=== PATIENT | male | born 1945 | race Caucasian/White ===

== ENCOUNTER 2022-02-26 19:57 | Inpatient (IN) | payer MEDICARE ==
[2022-02-26] MEDS ORDERED: Albuterol Sulfate 2.5 mg/3 ml Neb ONE (20:01)
[2022-02-26 20:51] LABS: #Basophils 0.1 10x3/uL (0.0-0.2); #Eosinphils 0.4 10x3/uL (0.0-0.5); #Monocytes 0.3 10x3/uL (0.0-1.1); #Neutrophils 9.6 10x3/uL (1.5-8.4); %Eosinophils 3.3 % (0.0-6.0); %Lymphocytes 6.8 % (18.0-47.0); %Monocytes 2.7 % (0.0-10.0); %Neutrophils 83.2 % (40.0-75.0); Mean Corpuscular HGB CONC 32.2 g/dL (32.0-36.0); Mean Corpuscular Hemoglobin 31.4 pg (27.0-33.0); Mean Corpuscular Volume 97.6 fl (81.2-95.1); Mean Platelet Volume 9.9 fl (7.4-10.4); Platelet Count 154 10x3/uL (150-450); Red Blood Cell (RBC) Count 5.09 10x6/uL (4.32-5.72); White Blood Cell (WBC) Count 11.5 10x3/uL (3.5-10.5)
[2022-02-26 21:00] LABS: SARS-CoV-2 NAA Rapid Test Not Detected (NotDetected)
[2022-02-26 21:05] LABS: ALT (SGPT) 15 U/L (8-55); AST (SGOT) 20 U/L (5-34); Alkaline Phosphatase 78 U/L (40-110); Anion Gap 15 mmol/L (10-20); BUN (Urea Nitrogen) 23 mg/dL (8.4-25.7); Bilirubin, Total 0.8 mg/dL (0.2-1.2); Calc. Creatinine Clearance 0 mL/min (70-130); Calcium 9.1 mg/dL (7.8-10.44); Carbon Dioxide 34 mmol/L (23-31); Chloride 98 mmol/L (98-107); Estimated GFR 92; Globulin 3.2 g/dL (2.4-3.5); Glucose 143 mg/dL (83-110); Potassium 4.4 mmol/L (3.5-5.1); Protein, Total 7.2 g/dL (5.8-8.1); Sodium 143 mmol/L (136-145)
[2022-02-26] MEDS ORDERED: Dexmedetomidine In 0.9 % NaCl 400 MCG in Premix Bag 1 BAG IVPB SCH (22:00)
[2022-02-26] MEDS ORDERED: methylPREDNISolone Sod Succ/PF 125 MG/2 ML VIAL ONE (22:21)
[2022-02-26] MEDS ORDERED: Propofol 1,000 MG/100 ML VIAL IV ONE (22:51)
[2022-02-26] MEDS ORDERED: Acetaminophen 650 MG Suppository PR PRN (23:27)
[2022-02-26] MEDS ORDERED: Rocuronium Bromide 10 MG/ML (10ML VIAL) ONE (23:30)
[2022-02-26] MEDS ORDERED: Ventilator Sedation Protocol 1 EACH FS SCH (23:30)
[2022-02-26] MEDS ORDERED: Succinylcholine 200 MG/10 ml SYRINGE FS ONE (23:30)
[2022-02-26] MEDS ORDERED: Propofol 1,000 MG/100 ML VIAL IV PRN (23:43)
[2022-02-26] MEDS ORDERED: Morphine 2 MG/ML VIAL SLOW IVP PRN (23:45)
[2022-02-26] MEDS ORDERED: Propofol BOLUS 1,000 MG/100 ML VIAL IV PRN (23:45)
[2022-02-26] MEDS ORDERED: Fentanyl BOLUS 250 ML IVPB PRN (23:45)
[2022-02-27 00:18] LABS: Magnesium 1.9 mg/dL (1.6-2.6)
[2022-02-27 01:19] LABS: Base Excess (BEa) 8.3 mEq/L (-2.0 to +3.0); Calcium, Ionized (arterial) 1.12 mmol/L (1.12-1.30); Carboxyhemoglobin (COHb) 0.8 gm% (0.0-3.0); Critical Notified By: CP.JL; Hemoglobin (Hb) 17.8 g/dL (14.0-18.0); O2 Tension (PaO2), arterial 70.9 mmHg (> 70.0); Puncture Site RRA; RapidComm Collect By CP.JL; pH, Arterial 7.58 (7.35-7.45)
[2022-02-27] MEDS ORDERED: Cefepime 2 GM VIAL ONE (01:42)
[2022-02-27] MEDS: Cefepime 2 GM in Sodium Chloride 0.9% 100 ML IVPB SCH ×3 (01:44→23:22)
[2022-02-27] MEDS: Sodium Chloride 0.9% 1,000 ML IV SCH ×2 (01:45→12:43)
[2022-02-27] MEDS: methylPREDNISolone Sod Succ 40 MG VIAL IVP SCH ×5 (01:45→23:23)
[2022-02-27] MEDS: Propofol 1,000 MG/100 ML VIAL IV PRN ×5 (03:09→23:39)
[2022-02-27 04:34] LABS: Actual Bicarbonate (HCO3a) 31.3 mEq/L (22-28); Base Excess (BEa) 6.2 mEq/L (-2.0 to +3.0); CO2 Tension 45.8 mmHg (35.0-45.0); Calcium, Ionized (arterial) 1.16 mmol/L (1.12-1.30); Carboxyhemoglobin (COHb) 0.5 gm% (0.0-3.0); Critical Notified By: CP.JL; Hemoglobin (Hb) 17.4 g/dL (14.0-18.0); Potassium - ABG Lab 3.7 mmol/L (3.70-5.30); Puncture Site RRA; RapidComm Collect By CP.JL; pH, Arterial 7.45 (7.35-7.45)
[2022-02-27 06:42] LABS: #Monocytes 0.1 10x3/uL (0.0-1.1); #Neutrophils 9.7 10x3/uL (1.5-8.4); %Basophils 0.4 % (0.0-2.0); %Eosinophils 0.2 % (0.0-6.0); %Lymphocytes 4.4 % (18.0-47.0); %Monocytes 0.9 % (0.0-10.0); %Neutrophils 91.9 % (40.0-75.0); Hemoglobin 16.7 g/dL (13.5-17.5); Mean Corpuscular HGB CONC 32.6 g/dL (32.0-36.0); Mean Corpuscular Volume 95.4 fl (81.2-95.1); Mean Platelet Volume 10.3 fl (7.4-10.4); Platelet Count 164 10x3/uL (150-450); RBC Distribution Width 14.8 % (11.5-14.5); Red Blood Cell (RBC) Count 5.38 10x6/uL (4.32-5.72); White Blood Cell (WBC) Count 10.5 10x3/uL (3.5-10.5)
[2022-02-27 07:06] LABS: Anion Gap 17 mmol/L (10-20); BUN (Urea Nitrogen) 24 mg/dL (8.4-25.7); Calc. Creatinine Clearance 133 mL/min (70-130); Calcium 8.8 mg/dL (7.8-10.44); Carbon Dioxide 27 mmol/L (23-31); Chloride 102 mmol/L (98-107); Estimated GFR 94; Glucose 157 mg/dL (83-110); Potassium 3.8 mmol/L (3.5-5.1); Sodium 142 mmol/L (136-145)
[2022-02-27] MEDS: FENTANYL 2,000MCG/100-0.9%NACL 100 ML IVPB SCH ×2 (07:18→19:20)
[2022-02-27] MEDS: Budesonide 0.5 MG/2 ML NEB NEB SCH ×2 (07:30→18:57)
[2022-02-27] MEDS: Arformoterol 15 MCG/2 ML NEB NEB SCH ×2 (08:43→18:56)
[2022-02-27] MEDS ORDERED: Iopamidol 370 76% 100 ML VIAL ONE (09:08)
[2022-02-27 12:05] LABS: Actual Bicarbonate (HCO3a) 41.6 mEq/L (22-28); Calcium, Ionized (arterial) 1.22 mmol/L (1.12-1.30); Carboxyhemoglobin (COHb) 1.9 gm% (0.0-3.0); Hemoglobin (Hb) 17.2 g/dL (14.0-18.0); O2 Tension (PaO2), arterial 82.2 mmHg (> 70.0); Potassium - ABG Lab 4.3 mmol/L (3.70-5.30); Puncture Site RRA; RapidComm Collect By CP.JL; pH, Arterial 7.17 (7.35-7.45)
[2022-02-27 12:06] LABS: Actual Bicarbonate (HCO3a) 41.1 mEq/L (22-28); Base Excess (BEa) 6.3 mEq/L (-2.0 to +3.0); CO2 Tension 122.6 mmHg (35.0-45.0); Calcium, Ionized (arterial) 1.25 mmol/L (1.12-1.30); Carboxyhemoglobin (COHb) 1.6 gm% (0.0-3.0); Hemoglobin (Hb) 16.7 g/dL (14.0-18.0); O2 Tension (PaO2), arterial 90.3 mmHg (> 70.0); Potassium - ABG Lab 4.4 mmol/L (3.70-5.30); Puncture Site RRA; RapidComm Collect By CP.JL; pH, Arterial 7.14 (7.35-7.45)
[2022-02-27] MEDS: HumaLOG 300 UNITS/3 ML VIAL SC PRN ×3 (16:33→23:59)
[2022-02-27 16:37] LABS: Actual Bicarbonate (HCO3a) 28.5 mEq/L (22-28); Base Excess (BEa) 2.9 mEq/L (-2.0 to +3.0); CO2 Tension 46.9 mmHg (35.0-45.0); Calcium, Ionized (arterial) 1.12 mmol/L (1.12-1.30); Carboxyhemoglobin (COHb) 0.4 gm% (0.0-3.0); Hemoglobin (Hb) 16.6 g/dL (14.0-18.0); O2 Tension (PaO2), arterial 58.9 mmHg (> 70.0); Potassium - ABG Lab 3.9 mmol/L (3.70-5.30); Puncture Site RRA
[2022-02-27 16:40] LABS: ALV-art Gradient 310.275 mmHg (0-20)
[2022-02-27] MEDS: Tamsulosin HCl 0.4 MG CAP PO SCH (20:57)
[2022-02-28 04:05] LABS: Anion Gap 17 mmol/L (10-20); BUN (Urea Nitrogen) 31 mg/dL (8.4-25.7); Calc. Creatinine Clearance 116 mL/min (70-130); Calcium 8.5 mg/dL (7.8-10.44); Carbon Dioxide 25 mmol/L (23-31); Chloride 102 mmol/L (98-107); Estimated GFR 90; Glucose 173 mg/dL (83-110); Sodium 140 mmol/L (136-145)
[2022-02-28] MEDS: Propofol 1,000 MG/100 ML VIAL IV PRN ×5 (04:32→20:12)
[2022-02-28] MEDS: Sodium Chloride 0.9% 1,000 ML IV SCH (04:33)
[2022-02-28] MEDS: HumaLOG 300 UNITS/3 ML VIAL SC PRN ×3 (04:42→23:11)
[2022-02-28 04:52] LABS: #Basophils 0.1 10x3/uL (0.0-0.2); #Monocytes 0.7 10x3/uL (0.0-1.1); #Neutrophils 19.6 10x3/uL (1.5-8.4); %Basophils 0.3 % (0.0-2.0); %Lymphocytes 2.5 % (18.0-47.0); %Monocytes 3.5 % (0.0-10.0); Hemoglobin 16.4 g/dL (13.5-17.5); Mean Corpuscular HGB CONC 32.6 g/dL (32.0-36.0); Mean Corpuscular Hemoglobin 31.5 pg (27.0-33.0); Mean Corpuscular Volume 96.5 fl (81.2-95.1); Mean Platelet Volume 10.2 fl (7.4-10.4); Platelet Count 178 10x3/uL (150-450); RBC Distribution Width 15.4 % (11.5-14.5); Red Blood Cell (RBC) Count 5.21 10x6/uL (4.32-5.72); White Blood Cell (WBC) Count 21.1 10x3/uL (3.5-10.5)
[2022-02-28] MEDS: methylPREDNISolone Sod Succ 40 MG VIAL IVP SCH ×4 (05:33→23:04)
[2022-02-28 05:47] LABS: Band 11 % (5-11); Lymphocytes 1 % (21-51); Monocytes 2 % (0-10); Reactive Lymphocytes 2 % (0-10)
[2022-02-28 05:49] LABS: Neutrophil 84 % (42-75); Polychromasia SLIGHT = 2-3 cells (100X) (0-2/hpf); Stomatocytes SLIGHT = 2-5 cells (100X) (0-1/hpf)
[2022-02-28 05:50] LABS: Platelet Morphology Comment Appears Decreased
[2022-02-28] MEDS: Budesonide 0.5 MG/2 ML NEB NEB SCH ×2 (07:27→18:51)
[2022-02-28] MEDS: Arformoterol 15 MCG/2 ML NEB NEB SCH ×2 (07:30→18:50)
[2022-02-28] MEDS: Enoxaparin Sodium 40 MG/0.4 ML SYRINGE SC SCH (07:53)
[2022-02-28] MEDS: Tamsulosin HCl 0.4 MG CAP PO SCH ×2 (07:53→20:12)
[2022-02-28] MEDS: Famotidine/PF 20 mg/2ml Vial SLOW IVP SCH (07:53)
[2022-02-28 08:23] LABS: Actual Bicarbonate (HCO3a) 30.1 mEq/L (22-28); Base Excess (BEa) 3.7 mEq/L (-2.0 to +3.0); CO2 Tension 51.6 mmHg (35.0-45.0); Calcium, Ionized (arterial) 1.14 mmol/L (1.12-1.30); Carboxyhemoglobin (COHb) 0.4 gm% (0.0-3.0); Hemoglobin (Hb) 16.4 g/dL (14.0-18.0); O2 Tension (PaO2), arterial 62.4 mmHg (> 70.0); Potassium - ABG Lab 4.1 mmol/L (3.70-5.30); Puncture Site LRA; pH, Arterial 7.38 (7.35-7.45)
[2022-02-28] MEDS: FENTANYL 2,000MCG/100-0.9%NACL 100 ML IVPB SCH (09:16)
[2022-02-28] MEDS ORDERED: Cefepime 2 GM VIAL ONE (10:36)
[2022-02-28] MEDS: Cefepime 2 GM in Sodium Chloride 0.9% 100 ML IVPB SCH ×2 (11:00→23:05)
[2022-03-01] MEDS: Propofol 1,000 MG/100 ML VIAL IV PRN ×6 (00:38→21:00)
[2022-03-01] MEDS: FENTANYL 2,000MCG/100-0.9%NACL 100 ML IVPB SCH ×2 (00:38→14:45)
[2022-03-01 04:53] LABS: #Monocytes 0.4 10x3/uL (0.0-1.1); #Neutrophils 16.7 10x3/uL (1.5-8.4); %Basophils 0.1 % (0.0-2.0); %Lymphocytes 2.1 % (18.0-47.0); %Monocytes 2.5 % (0.0-10.0); %Neutrophils 94.8 % (40.0-75.0); Hemoglobin 15.7 g/dL (13.5-17.5); Mean Corpuscular HGB CONC 32.4 g/dL (32.0-36.0); Mean Corpuscular Hemoglobin 31.6 pg (27.0-33.0); Mean Corpuscular Volume 97.4 fl (81.2-95.1); Mean Platelet Volume 10.3 fl (7.4-10.4); Platelet Count 171 10x3/uL (150-450); RBC Distribution Width 15.6 % (11.5-14.5); Red Blood Cell (RBC) Count 4.97 10x6/uL (4.32-5.72); White Blood Cell (WBC) Count 17.6 10x3/uL (3.5-10.5)
[2022-03-01 05:08] LABS: Anion Gap 13 mmol/L (10-20); BUN (Urea Nitrogen) 38 mg/dL (8.4-25.7); Calc. Creatinine Clearance 137 mL/min (70-130); Calcium 8.2 mg/dL (7.8-10.44); Carbon Dioxide 28 mmol/L (23-31); Chloride 102 mmol/L (98-107); Estimated GFR 94; Glucose 170 mg/dL (83-110); Magnesium 2.5 mg/dL (1.6-2.6); Potassium 4.2 mmol/L (3.5-5.1); Sodium 139 mmol/L (136-145)
[2022-03-01] MEDS: HumaLOG 300 UNITS/3 ML VIAL SC PRN ×4 (05:10→23:26)
[2022-03-01] MEDS: methylPREDNISolone Sod Succ 40 MG VIAL IVP SCH ×4 (05:11→23:20)
[2022-03-01] MEDS: Arformoterol 15 MCG/2 ML NEB NEB SCH ×2 (07:15→18:35)
[2022-03-01] MEDS: Budesonide 0.5 MG/2 ML NEB NEB SCH ×2 (07:20→18:20)
[2022-03-01] MEDS: Tamsulosin HCl 0.4 MG CAP PO SCH ×2 (08:21→19:39)
[2022-03-01] MEDS: Famotidine/PF 20 mg/2ml Vial SLOW IVP SCH (08:23)
[2022-03-01] MEDS: Enoxaparin Sodium 40 MG/0.4 ML SYRINGE SC SCH (08:23)
[2022-03-01] MEDS ORDERED: Furosemide 40 MG/4 ML VIAL SLOW IVP SCH (10:15)
[2022-03-01] MEDS: Cefepime 2 GM in Sodium Chloride 0.9% 100 ML IVPB SCH ×2 (11:08→23:20)
[2022-03-01 11:28] LABS: Actual Bicarbonate (HCO3a) 29.9 mEq/L (22-28); Base Excess (BEa) 2.5 mEq/L (-2.0 to +3.0); CO2 Tension 56.6 mmHg (35.0-45.0); Calcium, Ionized (arterial) 1.14 mmol/L (1.12-1.30); Carboxyhemoglobin (COHb) 0.4 gm% (0.0-3.0); O2 Tension (PaO2), arterial 61.5 mmHg (> 70.0); Potassium - ABG Lab 4.4 mmol/L (3.70-5.30); Puncture Site LRA; pH, Arterial 7.34 (7.35-7.45)
[2022-03-01] MEDS: Lorazepam 2 MG/ML VIAL SLOW IVP PRN (14:38)
[2022-03-02] MEDS: Propofol 1,000 MG/100 ML VIAL IV PRN ×5 (02:10→21:34)
[2022-03-02 04:22] LABS: #Monocytes 0.5 10x3/uL (0.0-1.1); #Neutrophils 12.6 10x3/uL (1.5-8.4); %Basophils 0.2 % (0.0-2.0); %Lymphocytes 3.2 % (18.0-47.0); %Monocytes 3.3 % (0.0-10.0); %Neutrophils 92.9 % (40.0-75.0); Hemoglobin 16.7 g/dL (13.5-17.5); Mean Corpuscular HGB CONC 32.6 g/dL (32.0-36.0); Mean Corpuscular Hemoglobin 31.5 pg (27.0-33.0); Mean Corpuscular Volume 96.6 fl (81.2-95.1); Mean Platelet Volume 10.1 fl (7.4-10.4); Platelet Count 154 10x3/uL (150-450); RBC Distribution Width 15.3 % (11.5-14.5); White Blood Cell (WBC) Count 13.6 10x3/uL (3.5-10.5)
[2022-03-02 04:31] LABS: Anion Gap 14 mmol/L (10-20); BUN (Urea Nitrogen) 38 mg/dL (8.4-25.7); Calc. Creatinine Clearance 131 mL/min (70-130); Calcium 8.5 mg/dL (7.8-10.44); Carbon Dioxide 30 mmol/L (23-31); Chloride 101 mmol/L (98-107); Estimated GFR 93; Glucose 160 mg/dL (83-110); Potassium 4.7 mmol/L (3.5-5.1); Sodium 140 mmol/L (136-145)
[2022-03-02] MEDS: methylPREDNISolone Sod Succ 40 MG VIAL IVP SCH ×3 (06:28→17:10)
[2022-03-02] MEDS: FENTANYL 2,000MCG/100-0.9%NACL 100 ML IVPB SCH ×2 (06:38→22:38)
[2022-03-02] MEDS: Budesonide 0.5 MG/2 ML NEB NEB SCH ×2 (07:45→18:35)
[2022-03-02] MEDS: Arformoterol 15 MCG/2 ML NEB NEB SCH ×2 (07:46→18:25)
[2022-03-02] MEDS: Enoxaparin Sodium 40 MG/0.4 ML SYRINGE SC SCH (07:54)
[2022-03-02] MEDS: Famotidine/PF 20 mg/2ml Vial SLOW IVP SCH (07:54)
[2022-03-02] MEDS: Tamsulosin HCl 0.4 MG CAP PO SCH ×2 (07:54→20:32)
[2022-03-02] MEDS: HumaLOG 300 UNITS/3 ML VIAL SC PRN ×2 (12:00→16:10)
[2022-03-02] MEDS: Cefepime 2 GM in Sodium Chloride 0.9% 100 ML IVPB SCH (12:07)
[2022-03-03] MEDS: Cefepime 2 GM in Sodium Chloride 0.9% 100 ML IVPB SCH ×2 (00:30→11:03)
[2022-03-03] MEDS: methylPREDNISolone Sod Succ 40 MG VIAL IVP SCH ×4 (00:30→17:20)
[2022-03-03] MEDS: Propofol 1,000 MG/100 ML VIAL IV PRN ×5 (02:21→23:51)
[2022-03-03 04:13] LABS: Hemoglobin 16.2 g/dL (13.5-17.5); Mean Corpuscular HGB CONC 31.8 g/dL (32.0-36.0); Mean Corpuscular Volume 97.5 fl (81.2-95.1); Mean Platelet Volume 10.3 fl (7.4-10.4); Platelet Count 141 10x3/uL (150-450); RBC Distribution Width 15.2 % (11.5-14.5); Red Blood Cell (RBC) Count 5.23 10x6/uL (4.32-5.72); White Blood Cell (WBC) Count 12.6 10x3/uL (3.5-10.5)
[2022-03-03 04:30] LABS: Anion Gap 14 mmol/L (10-20); BUN (Urea Nitrogen) 38 mg/dL (8.4-25.7); Calc. Creatinine Clearance 143 mL/min (70-130); Calcium 8.4 mg/dL (7.8-10.44); Carbon Dioxide 29 mmol/L (23-31); Chloride 102 mmol/L (98-107); Estimated GFR 95; Glucose 190 mg/dL (83-110); Potassium 5.1 mmol/L (3.5-5.1); Sodium 140 mmol/L (136-145)
[2022-03-03 04:42] LABS: MDiff Complete? YES
[2022-03-03 04:44] LABS: Lymphocytes 2 % (21-51); Monocytes 8 % (0-10); Neutrophil 89 % (42-75); Reactive Lymphocytes 1 % (0-10)
[2022-03-03 04:45] LABS: Platelet Morphology Comment Appears Adequate; RBC Morphology Normal
[2022-03-03] MEDS: Arformoterol 15 MCG/2 ML NEB NEB SCH ×2 (07:38→18:40)
[2022-03-03] MEDS: Budesonide 0.5 MG/2 ML NEB NEB SCH ×2 (07:39→18:50)
[2022-03-03] MEDS: Enoxaparin Sodium 40 MG/0.4 ML SYRINGE SC SCH (08:21)
[2022-03-03] MEDS: Tamsulosin HCl 0.4 MG CAP PO SCH ×2 (08:21→21:17)
[2022-03-03] MEDS: Famotidine/PF 20 mg/2ml Vial SLOW IVP SCH ×2 (08:21→21:17)
[2022-03-03] MEDS: FENTANYL 2,000MCG/100-0.9%NACL 100 ML IVPB SCH (16:53)
[2022-03-03] MEDS: HumaLOG 300 UNITS/3 ML VIAL SC PRN (17:20)
[2022-03-03] MEDS: Lorazepam 2 MG/ML VIAL SLOW IVP PRN (17:20)
[2022-03-04] MEDS: methylPREDNISolone Sod Succ 40 MG VIAL IVP SCH ×5 (00:09→20:34)
[2022-03-04] MEDS: Cefepime 2 GM in Sodium Chloride 0.9% 100 ML IVPB SCH ×3 (00:09→23:40)
[2022-03-04 03:59] LABS: Anion Gap 16 mmol/L (10-20); BUN (Urea Nitrogen) 53 mg/dL (8.4-25.7); Calc. Creatinine Clearance 126 mL/min (70-130); Calcium 8.6 mg/dL (7.8-10.44); Carbon Dioxide 29 mmol/L (23-31); Chloride 101 mmol/L (98-107); Estimated GFR 91; Glucose 182 mg/dL (83-110); Potassium 5.3 mmol/L (3.5-5.1); Sodium 141 mmol/L (136-145)
[2022-03-04] MEDS: FENTANYL 2,000MCG/100-0.9%NACL 100 ML IVPB SCH ×2 (04:15→22:30)
[2022-03-04 04:31] LABS: #Basophils 0.1 10x3/uL (0.0-0.2); #Monocytes 0.9 10x3/uL (0.0-1.1); #Neutrophils 14.8 10x3/uL (1.5-8.4); %Basophils 0.4 % (0.0-2.0); %Lymphocytes 2.2 % (18.0-47.0); %Monocytes 5.3 % (0.0-10.0); %Neutrophils 91.1 % (40.0-75.0); Hemoglobin 17.1 g/dL (13.5-17.5); Mean Corpuscular HGB CONC 33.1 g/dL (32.0-36.0); Mean Corpuscular Hemoglobin 31.5 pg (27.0-33.0); Mean Corpuscular Volume 95.4 fl (81.2-95.1); Mean Platelet Volume 10.6 fl (7.4-10.4); Platelet Count 142 10x3/uL (150-450); RBC Distribution Width 14.9 % (11.5-14.5); Red Blood Cell (RBC) Count 5.42 10x6/uL (4.32-5.72); White Blood Cell (WBC) Count 16.2 10x3/uL (3.5-10.5)
[2022-03-04] MEDS: Propofol 1,000 MG/100 ML VIAL IV PRN ×3 (04:44→17:03)
[2022-03-04] MEDS: Arformoterol 15 MCG/2 ML NEB NEB SCH ×2 (07:33→21:10)
[2022-03-04] MEDS: Budesonide 0.5 MG/2 ML NEB NEB SCH ×2 (07:35→21:10)
[2022-03-04] MEDS: Enoxaparin Sodium 40 MG/0.4 ML SYRINGE SC SCH (08:07)
[2022-03-04] MEDS: Famotidine/PF 20 mg/2ml Vial SLOW IVP SCH ×2 (08:08→20:20)
[2022-03-04] MEDS: HumaLOG 300 UNITS/3 ML VIAL SC PRN ×2 (08:08→16:19)
[2022-03-04] MEDS: Tamsulosin HCl 0.4 MG CAP PO SCH ×2 (08:08→20:20)
[2022-03-04] MEDS: Dexmedetomidine In 0.9 % NaCl 100 ML IVPB SCH (20:35)
[2022-03-05] MEDS: Dexmedetomidine In 0.9 % NaCl 100 ML IVPB SCH ×3 (02:47→08:34)
[2022-03-05] MEDS: methylPREDNISolone Sod Succ 40 MG VIAL IVP SCH ×2 (02:50→08:33)
[2022-03-05 04:09] LABS: Hemoglobin 18.9 g/dL (13.5-17.5); Mean Corpuscular HGB CONC 33.4 g/dL (32.0-36.0); Mean Corpuscular Hemoglobin 31.8 pg (27.0-33.0); Mean Corpuscular Volume 95.1 fl (81.2-95.1); Mean Platelet Volume 11.3 fl (7.4-10.4); Platelet Count 102 10x3/uL (150-450); RBC Distribution Width 15.2 % (11.5-14.5); Red Blood Cell (RBC) Count 5.95 10x6/uL (4.32-5.72); White Blood Cell (WBC) Count 13.2 10x3/uL (3.5-10.5)
[2022-03-05 04:21] LABS: Anion Gap 17 mmol/L (10-20); BUN (Urea Nitrogen) 48 mg/dL (8.4-25.7); Calc. Creatinine Clearance 128 mL/min (70-130); Carbon Dioxide 26 mmol/L (23-31); Chloride 104 mmol/L (98-107); Estimated GFR 92; Glucose 188 mg/dL (83-110); Sodium 141 mmol/L (136-145)
[2022-03-05 05:10] LABS: #Monocytes 0.7 10x3/uL (0.0-1.1); %Basophils 0.3 % (0.0-2.0); %Lymphocytes 2.3 % (18.0-47.0); %Neutrophils 91.6 % (40.0-75.0)
[2022-03-05 05:36] VITALS: BMI 34.8
[2022-03-05 05:51] LABS: Potassium 6.3 mmol/L (3.5-5.1)
[2022-03-05] MEDS ORDERED: LOKELMA 10 GM PACKET PO SCH (06:00)
[2022-03-05] MEDS ORDERED: Calcium Gluc 4.6 MEQ/10 ML (100 MG/ML) SLOW IVP SCH (06:00)
[2022-03-05] MEDS ORDERED: Insulin Regular 300 UNITS/3 ML VIAL IVP SCH (06:00)
[2022-03-05] MEDS ORDERED: Dextrose 50% Abboject 50 ML SYRINGE SLOW IVP SCH (06:00)
[2022-03-05] MEDS ORDERED: Furosemide 40 MG/4 ML VIAL IVP SCH (08:00)
[2022-03-05] MEDS: Famotidine/PF 20 mg/2ml Vial SLOW IVP SCH (08:32)
[2022-03-05] MEDS: Tamsulosin HCl 0.4 MG CAP PO SCH (08:32)
[2022-03-05] MEDS: Enoxaparin Sodium 40 MG/0.4 ML SYRINGE SC SCH (08:32)
[2022-03-05] MEDS: HumaLOG 300 UNITS/3 ML VIAL SC PRN ×2 (08:45→12:25)
[2022-03-05] MEDS ORDERED: Morphine 4 MG/ML VIAL SLOW IVP PRN (08:52)
[2022-03-05 11:19] LABS: Anion Gap 15 mmol/L (10-20); BUN (Urea Nitrogen) 48 mg/dL (8.4-25.7); Calc. Creatinine Clearance 125 mL/min (70-130); Carbon Dioxide 31 mmol/L (23-31); Chloride 100 mmol/L (98-107); Estimated GFR 92; Glucose 220 mg/dL (83-110); Potassium 5.1 mmol/L (3.5-5.1); Sodium 141 mmol/L (136-145)
[2022-03-05] MEDS: Cefepime 2 GM in Sodium Chloride 0.9% 100 ML IVPB SCH (11:45)
[2022-03-05 14:36] VITALS: BP 134/85
== END 2022-03-05 13:54 | disposition hospice, inpatient (51) | DRG 207 ==
LOC: CSHERS 19:57 → CSHICU 23:44
PROVIDERS: ADMIT Family Medicine; ATTEND Family Medicine
PROC: 0DH67UZ Insertion of Feeding Device into Stomach, Via Natural or Artificial Opening (ICD-10-PCS; principal; 2022-02-26)
PROC: 5A1955Z Respiratory Ventilation, Greater than 96 Consecutive Hours (ICD-10-PCS; 2022-02-26)
PROC: 3E0G76Z Introduction of Nutritional Substance into Upper GI, Via Natural or Artificial Opening (ICD-10-PCS; 2022-02-26)
PROC: 0BH17EZ Insertion of Endotracheal Airway into Trachea, Via Natural or Artificial Opening (ICD-10-PCS; 2022-02-26)
DX: J96.21 Acute and chronic respiratory failure with hypoxia (principal); J18.9 Pneumonia, unspecified organism; J44.1 Chronic obstructive pulmonary disease with (acute) exacerbation; J96.22 Acute and chronic respiratory failure with hypercapnia; I10 Essential (primary) hypertension; Z66 Do not resuscitate; Z51.5 Encounter for palliative care; N40.0 Benign prostatic hyperplasia without lower urinary tract symptoms; D72.829 Elevated white blood cell count, unspecified; Z20.822 Contact with and (suspected) exposure to COVID-19; E66.9 Obesity, unspecified; E78.5 Hyperlipidemia, unspecified; Z99.81 Dependence on supplemental oxygen; Z88.6 Allergy status to analgesic agent; Z91.011 Allergy to milk products; Z91.018 Allergy to other foods; Z79.899 Other long term (current) drug therapy; Z79.52 Long term (current) use of systemic steroids; Z90.49 Acquired absence of other specified parts of digestive tract; Z98.52 Vasectomy status; Z87.891 Personal history of nicotine dependence; Z78.1 Physical restraint status; Z68.34 Body mass index [BMI] 34.0-34.9, adult
CPT/HCPCS: 31500; 36415; 36416; 36600; 51702; 70450; 71045; 71275; 80048; 80053; 82805; 83605; 83735; 83880; 84443; 84484; 85025; 87070; 87205; 87811; 93005; 93010; 93306; 94002; 94003; 94640; 94660; 94760; 96365; 96366; 96375; 99292; J0610; J0692; J1650; J1815; J1940; J1956; J2060; J2704; J2920; J2930; J3490; J7050; J7611; J7620; J7626; J7999; Q9967; S0028

== ENCOUNTER 2022-03-05 14:09 | Inpatient (IN) | payer OTHER ==
[2022-03-05 14:33] VITALS: BMI 34.7
[2022-03-05] MEDS ORDERED: Morphine 2 MG/ML VIAL SLOW IVP SCH (14:45)
[2022-03-05] MEDS ORDERED: Lorazepam 2 MG/ML VIAL SLOW IVP SCH (14:45)
[2022-03-05] MEDS ORDERED: diphenhydrAMINE 50 MG/ML VIAL IVP PRN (15:00)
[2022-03-05] MEDS ORDERED: Acetaminophen 650 MG Suppository PR PRN (15:00)
[2022-03-05] MEDS ORDERED: Ondansetron PF 4 MG/2 ML Vial IVP PRN (15:00)
[2022-03-05] MEDS: Morphine 2 MG/ML VIAL SLOW IVP PRN ×2 (15:22→17:57)
[2022-03-05] MEDS: Scopolamine 1.5 mg/72 hour Patch TOP PRN (15:29)
[2022-03-05] MEDS: Lorazepam 2 MG/ML VIAL SLOW IVP SCH (21:53)
[2022-03-05] MEDS: Morphine 2 MG/ML VIAL SLOW IVP SCH (21:54)
[2022-03-06] MEDS: Lorazepam 2 MG/ML VIAL SLOW IVP SCH ×4 (03:29→20:38)
[2022-03-06] MEDS: Morphine 2 MG/ML VIAL SLOW IVP SCH ×4 (03:29→20:38)
[2022-03-06] MEDS: Lorazepam 2 MG/ML VIAL SLOW IVP PRN ×2 (13:27→23:34)
[2022-03-07] MEDS: Lorazepam 2 MG/ML VIAL SLOW IVP SCH ×4 (03:19→21:00)
[2022-03-07] MEDS: Morphine 2 MG/ML VIAL SLOW IVP SCH ×4 (03:54→22:08)
[2022-03-07] MEDS: Lorazepam 2 MG/ML VIAL SLOW IVP PRN (13:11)
[2022-03-07] MEDS: Morphine 2 MG/ML VIAL SLOW IVP PRN (13:37)
[2022-03-08] MEDS: Morphine 2 MG/ML VIAL SLOW IVP SCH ×2 (05:37→08:28)
[2022-03-08] MEDS: Lorazepam 2 MG/ML VIAL SLOW IVP SCH ×4 (05:37→21:11)
[2022-03-08] MEDS: Morphine 4 MG/ML VIAL SLOW IVP SCH ×2 (13:50→19:52)
[2022-03-09] MEDS: Morphine 4 MG/ML VIAL SLOW IVP SCH ×4 (01:42→19:18)
[2022-03-09] MEDS: Scopolamine 1.5 mg/72 hour Patch TOP PRN (02:01)
[2022-03-09] MEDS: Lorazepam 2 MG/ML VIAL SLOW IVP SCH ×4 (02:12→20:12)
[2022-03-09] MEDS: Scopolamine 1.5 mg/72 hour Patch TOP SCH ×2 (19:20→20:21)
[2022-03-10] MEDS: Morphine 4 MG/ML VIAL SLOW IVP SCH ×2 (02:26→07:45)
[2022-03-10] MEDS: Lorazepam 2 MG/ML VIAL SLOW IVP SCH ×2 (02:26→08:51)
[2022-03-10] MEDS: Atropine Sulfate 1% Ophth Soln 5 ml Bottle FS PRN ×2 (05:02→09:58)
[2022-03-10] MEDS: Lorazepam 2 MG/ML VIAL SLOW IVP PRN (05:04)
[2022-03-10 08:21] VITALS: BP 120/61; TEMP 100.5
[2022-03-10] MEDS ORDERED: Morphine 4 MG/ML VIAL SLOW IVP PRN (09:50)
[2022-03-10] MEDS ORDERED: Morphine 4 MG/ML VIAL SLOW IVP SCH (11:30)
[2022-03-10] MEDS ORDERED: Lorazepam 2 MG/ML VIAL SLOW IVP SCH (12:00)
[2022-03-10] MEDS ORDERED: Atropine Sulfate 1% Ophth Soln 5 ml Bottle FS SCH (14:00)
== END 2022-03-10 15:20 | disposition expired | DRG 951 ==
LOC: CSHICU 14:09 → CSHTELE 03-07 18:17
PROVIDERS: ADMIT Family Medicine; ATTEND Family Medicine
DX: Z51.5 Encounter for palliative care (principal); J18.9 Pneumonia, unspecified organism; J96.21 Acute and chronic respiratory failure with hypoxia; J96.22 Acute and chronic respiratory failure with hypercapnia; Z66 Do not resuscitate; J44.0 Chronic obstructive pulmonary disease with (acute) lower respiratory infection; J44.1 Chronic obstructive pulmonary disease with (acute) exacerbation; E78.5 Hyperlipidemia, unspecified; I10 Essential (primary) hypertension; Z99.81 Dependence on supplemental oxygen; Z88.6 Allergy status to analgesic agent; Z91.011 Allergy to milk products; Z91.018 Allergy to other foods; Z79.899 Other long term (current) drug therapy; Z79.52 Long term (current) use of systemic steroids; Z87.891 Personal history of nicotine dependence; Z90.49 Acquired absence of other specified parts of digestive tract; Z98.52 Vasectomy status
CPT/HCPCS: 94640; 94760; 94762; J1200; J2060; J2270; J7620